=== PATIENT | male | born 1985 | race Two or more races ===

== ENCOUNTER 2019-11-09 18:58 | Emergency (ER) | payer OTHER ==
[~2019-11-09] VITALS: Ht 167.6 cm; Wt 56.2 kg
[2019-11-09 20:01] VITALS: BP 112/56
--- NOTE | 2019-11-09 21:17 | PHYS DOC ---
Past Medical History Past Medical History: Depression (SEPIDEH JOYCE APRN) Past Surgical History: No Surgical History (SEPIDEH JOYCE APRN) Alcohol Use: None Drug Use: None (SEPIDEH JOYCE APRN) Adult General Chief Complaint Chief Complaint: SORE THROAT HPI HPI Patient is a 34 year old male who presents with sore throat that started 3:00 PM today. Patient denies runny nose, congestion, fever. He rates his pain as 6 out of 10 in severity sharp. (SEPIDEH JOYCE APRN) Review of Systems Review of Systems Constitutional: Denies fever or chills [] Eyes: Denies change in visual acuity, redness, or eye pain [] HENT: Reports sore throat. Denies runny nose or congestion. Respiratory: Denies cough or shortness of breath [] Cardiovascular: No additional information not addressed in HPI [] GI: Denies abdominal pain, nausea, vomiting, bloody stools or diarrhea [] : Denies dysuria or hematuria [] Musculoskeletal: Denies back pain or joint pain [] Integument: Denies rash or skin lesions [] Neurologic: Denies headache, focal weakness or sensory changes [] Endocrine: Denies polyuria or polydipsia [] Complete systems were reviewed and found to be within normal limits, except as documented in this note. (SEPIDEH JOYCE APRN) Allergies Allergies Allergies Coded Allergies Type Severity Reaction Last Updated Verified No Known Drug Allergies 11/09/19 No (SEPIDEH BAKER DO) Physical Exam Physical Exam Constitutional: Well developed, well nourished, no acute distress, non-toxic appearance. [] HENT: Normocephalic, atraumatic, bilateral external ears normal, oropharynx moist, no oral exudates, nose turbinates inflammed. Eyes: PERRLA, EOMI, conjunctiva normal, no discharge. [] Neck: Normal range of motion, no tenderness, supple, no stridor. [] Cardiovascular:Heart rate regular rhythm, no murmur [] Lungs & Thorax: Bilateral breath sounds clear to auscultation [] Skin: Warm, dry, no erythema, no rash. [] Neurologic: Alert and oriented X 3, normal motor function, normal sensory function, no focal deficits noted. [] Psychologic: Affect normal, judgement normal, mood normal. [] (SEPIDEH JOYCE APRN) Current Patient Data Vital Signs Vital Signs Date Time Temp Pulse Resp B/P (MAP) Pulse Ox O2 Delivery O2 Flow Rate FiO2 11/09/19 20:01 97.8 73 15 112/56 (74) 100 Room Air 97.8 (SEPIDEH BAKER DO) EKG EKG [] (SEPIDEH JOYCE APRN) Radiology/Procedures Radiology/Procedures [] (SEPIDEH JOYCE APRN) Course & Med Decision Making Course & Med Decision Making Pertinent Labs and Imaging studies reviewed. (See chart for details) Appears to have viral URI. Discussed taking Zyrtec. Strep is negative. (SEPIDEH JOYCE APRN) Dragon Disclaimer Dragon Disclaimer This electronic medical record was generated, in whole or in part, using a voice recognition dictation system. (SEPIDEH JOYCE APRN) Departure Departure Impression: Primary Impression: URI (upper respiratory infection) Disposition: HOME, SELF-CARE Condition: STABLE Referrals: UNKNOWN PCP NAME (PCP) Patient Instructions: Upper Respiratory Infection, Adult Additional Instructions: Thank you for visiting [facility]. We appreciate you trusting us with your care. If any additional problems come up don't hesitate to return to visit us. Please follow up with your primary care provider so they can plan additional care if needed and know about the problem that you had. If symptoms worsen come back to the Emergency Department. Any concerning symptoms that start such as chest pain, shortness of air, weakness or numbness on one side of the body, running high fevers or any other concerning symptoms return to the ER. Please start taking Zyrtec [id number] per label instructions. Attending Signature Attending Signature I have reviewed the PA/TOPPIECE CUTTER's note and plan of care. I was available for consultation as needed during the patient's visit in the emergency department. I agree with the clinical impression, plan, and disposition. (SEPIDEH BAKER DO) Problem Qualifiers Primary Impression: URI (upper respiratory infection) URI type: unspecified viral URI Qualified Codes: J06.9 - Acute upper respi ratory infection, unspecified SEPIDEH JOYCE APRN Nov 09, 2019 21:17 SEPIDEH BAKER DO Nov 10, 2019 01:13
== END 2019-11-09 21:22 | disposition home or self-care (01) ==
LOC: ER 18:58
DX: J06.9 Acute upper respiratory infection, unspecified (principal)
CPT/HCPCS: 87070; 87880; 99283

== ENCOUNTER 2020-02-06 15:46 | Emergency (ER) | payer OTHER ==
[~2020-02-06] VITALS: Ht 167.6 cm; Wt 55.0 kg
[2020-02-06 16:00] VITALS: BP 116/86
--- NOTE | 2020-02-06 16:13 | PHYS DOC ---
Past Medical History Past Medical History: Depression Past Surgical History: No Surgical History Smoking Status: Never Smoker Alcohol Use: None Drug Use: None Adult General Chief Complaint Chief Complaint: COUGH HPI HPI Patient is a 34 year old male who presents with cough this been ongoing for several weeks. The patient denies shortness of breath, fever, runny nose, sore throat. The patient states that this happens frequently for him he states he had an upper respiratory infection several months ago and took Zyrtec and it went away however Zyrtec is not helping at this time. Denies any travel or sick contacts. Complete ROS were reviewed and found to be within normal limits, except as documented in the HPI Allergies Allergies Allergies Coded Allergies Type Severity Reaction Last Updated Verified No Known Drug Allergies 11/09/19 No Physical Exam Physical Exam Constitutional: Well developed, well nourished, no acute distress, non-toxic ap pearance. [] HENT: Normocephalic, atraumatic, bilateral external ears normal, oropharynx moist, no oral exudates, nose normal. [] Neurologic: Alert and oriented X 3, normal motor function, normal sensory function, no focal deficits noted. [] Psychologic: Affect normal, judgement normal, mood normal. [] EKG EKG [] Radiology/Procedures Radiology/Procedures [] Course & Med Decision Making Course & Med Decision Making Pertinent Labs and Imaging studies reviewed. (See chart for details) Discussed with the patient that this could be from GERD discussed that he should probably follow-up with his primary care doctor for further evaluation and to set up we can have it scoped. Discussed with the patient I am unable to rule out coronavirus due to the fact that I am unable to test and would recommend self pointing at home for the next 14 days. Dragon Disclaimer Dragon Disclaimer This electronic medical record was generated, in whole or in part, using a voice recognition dictation system. Departure Departure Impression: Primary Impression: Cough Disposition: HOME, SELF-CARE Condition: STABLE Referrals: UNKNOWN PCP NAME (PCP) Patient Instructions: Cough, Adult Additional Instructions: Thank you for visiting [facility]. We appreciate you trusting us with your care. If any additional problems come up don't hesitate to return to visit us. Please follow up with your primary care provider so they can plan additional care if needed and know about the problem that you had. If symptoms worsen come back to the Emergency Department. Any concerning symptoms that start such as chest pain, shortness of air, weakness or numbness on one side of the body, running high fevers or any other concerning symptoms return to the ER. You have a viral syndrome which may include symptoms like muscle aches, fevers, chills, runny nose, cough, sneezing, sore throat, vomiting, or diarrhea. One of the potential viruses that you may have is SARS-CoV-2, the virus that causes COVID-19, also known as the Coronavirus. You are just as likely to have a different viral infection such as the common cold, flu, etc. Most patients with the Coronavirus have mild symptoms and recover on their own. Resting, staying hydrated, and sleep from known cases can be helpful. As of todays visit, you are well enough to go home and treat your symptoms with oral fluids and over the counter medications. Coronavirus testing is not performed on most people with mild symptoms who are being discharged from the emergency department. If Coronavirus testing was performed the results will not be available for possibly up to 2-3 days. If your result is positive you will be contacted. Please follow the following precautions at home: 1) Stay home except to get medical care. 2) As advised by the CDC we recommend you stay in your home and minimize contact with other people. We do not want you to spread the infection. 3) Those who are older or have significant medical issues may have more severe symptoms from this infection. We recommend self-isolation,FOR AT LEAST 7 DAYS after your 1st day of symptoms. AFTER you feel better please wait AT LEAST ANOTHER WEEK before returning to regular activities and being around other people! 4) IF you become sicker and have difficulty breathing, chest pain, unable to eat/drink, severe vomiting, diarrhea, or weakness you may need to return to the Emergency Department. 5) You should restrict activities outside your home, except for getting medical care. DO NOT go to work, school, or public areas. Avoid using public transportation, ride sharing, or taxis. 6) Separate yourself from other people in your home. You should use a separate bathroom if possible. 7) Avoid sharing personal household items such as dishes, cups, eating utensils, towels, etc. 8) Clean all high touch surfaces every day (door knobs, counter tops, etc). Use a household cleaning spray or wipe per label instructions. 9) Clean your hands often. Wash your hands with soap and water for at least 20 seconds. 10) Cover your mouth and nose with a tissue when you cough or sneeze. 11) Throw used tissues in a trash can and immediately wash your hands. For additional resources please visit the CDC website or the [facility] ([phone]). SEPIDEH JOYCE APRN Feb 06, 2020 16:13
== END 2020-02-06 16:34 | disposition home or self-care (01) ==
LOC: ER 15:46
DX: R05 Cough (principal)
CPT/HCPCS: 99281

== ENCOUNTER 2020-08-31 08:10 | Emergency (ER) | payer OTHER ==
[~2020-08-31] VITALS: Ht 167.6 cm; Wt 57.6 kg
[2020-08-31 08:20] VITALS: BP 110/50
[2020-08-31] MEDS ORDERED: DEXAMETHASONE SOD PHOS 20 MG/5 ML VIAL. PO ONE (08:45)
[2020-08-31] MEDS ORDERED: ACETAMINOPHEN 500 MG TABLET PO ONE (08:45)
[2020-08-31] MEDS ORDERED: FLUT9.9S NS (09:41)
[2020-08-31] MEDS ORDERED: GUAI600T47 PO (09:41)
--- NOTE | 2020-08-31 09:41 | PHYS DOC ---
Past Medical History Past Medical History: Depression Past Surgical History: No Surgical History Smoking Status: Never Smoker Alcohol Use: None Drug Use: None General Adult EDM: Chief Complaint: SORE THROAT HPI: HPI: History obtained for the patient. Patient is a 35-year-old male with a history of constipation presents with chief complaint of sore throat nasal congestion. He states that his sore throat began last night around 9 PM. Denies any changes to his voice. Denies any pain with opening his mouth. Does note mild pain with swallowing. Has tried some form of cough drops with minimal relief. Denies cough or fever. Denies vomiting. Denies headache. Does note some ear fullne ss. Denies any recent antibiotics. Denies any neck pain or limitations in his head and neck range of motion. Denies any known exposure to coronavirus. Denies any loss of taste or smell. No other complaints. Review of Systems: Review of Systems: Constitutional: Denies fever or chills. [] Eyes: Denies change in visual acuity. [] HENT: Positive for sore throat Respiratory: Denies cough or shortness of breath. [] Cardiovascular: Denies chest pain or edema. [] GI: Denies abdominal pain, nausea, vomiting, bloody stools or diarrhea. [] : Denies dysuria. [] Musculoskeletal: Denies back pain or joint pain. [] Integument: Denies rash. [] Neurologic: Denies headache, focal weakness or sensory changes. [] Endocrine: Denies polyuria or polydipsia. [] Lymphatic: Denies swollen glands. [] Psychiatric: Denies depression or anxiety. [] Heart Score: Risk Factors: Risk Factors: DM, Current or recent (<one month) smoker, HTN, HLP, family history of CAD, obesity. Risk Scores: Score 0 - 3: 2.5% MACE over next 6 weeks - Discharge Home Score 4 - 6: 20.3% MACE over next 6 weeks - Admit for Clinical Observation Score 7 - 10: 72.7% MACE over next 6 weeks - Early Invasive Strategies Current Medications: Current Medications Medications (Trade) Dose Ordered Sig/Lisa Start Time Stop Time Status Last Admin Dose Admin Acetaminophen (Tylenol) 1,000 mg 1X ONCE 08/31/20 08:45 08/31/20 08:46 DC 08/31/20 09:12 1,000 MG Dexamethasone Sodium Phosphate (Decadron) 10 mg 1X ONCE 08/31/20 08:45 08/31/20 08:46 DC 08/31/20 09:11 10 MG Allergies: Allergies: Allergies Coded Allergies Type Severity Reaction Last Updated Verified No Known Drug Allergies 11/09/19 No Physical Exam: PE: Constitutional: Well developed, well nourished, no acute distress, non-toxic appearance. [] HENT: ENT: Tolerates saliva. No trismus. Mild erythema of the oropharynx {with without:35799} exudate. No airway obstruction. Normal phonation. Uvula midline. NECK: No midline cervical tenderness. Anterior cervical adenopathy {Is/is not:9024} present. No tenderness of carotid sheath bilaterally. Neck supple with full ROM and without signs of meningismus. Eyes: PERRLA, EOMI, conjunctiva normal, no discharge. [] Cardiovascular:Heart rate regular rhythm, no murmur [] Lungs & Thorax: Bilateral breath sounds clear to auscultation [] Abdomen: soft, no tenderness, no masses, no pulsatile masses. [] Skin: Warm, dry, no erythema, no rash. [] Back: No tenderness, no CVA tenderness. [] Extremities: No tenderness, no cyanosis, no clubbing, ROM intact, no edema. [] Neurologic: Alert and oriented X 3, normal motor function, normal sensory function, no focal deficits noted. [] Psychologic: Affect normal, judgement normal, mood normal. [] Current Patient Data: Vital Signs: Vital Signs Date Time Temp Pulse Resp B/P (MAP) Pulse Ox O2 Delivery O2 Flow Rate FiO2 08/31/20 08:20 98.4 75 14 110/50 (70) 95 Room Air 98.4 EKG: EKG: [] Radiology/Procedures: Radiology/Procedures: [] Course & Med Decision Making: Course & Med Decision Making Pertinent Labs and Imaging studies reviewed. (See chart for details) [] Patient is a well-appearing 35-year-old male who presents with complaint of sore throat associate with nasal drainage. Exam noted above and grossly unremarkable. Low suspicion for deep space infection. Patient does not appear clinically toxic or have signs or symptoms concerning for deep space infection. Rapid strep test was negative. This could be related to his return precautions discussed and understood. Instructed follow-up with his primary care physician in the next 2 to 3 days. Stable for discharge. Ulises Disclaimer: Ulises Disclaimer: This electronic medical record was generated, in whole or in part, using a voice recognition dictation system. Departure Departure Impression: Primary Impression: Sore throat Disposition: 01 DC HOME SELF CARE/HOMELESS Condition: STABLE Referrals: UNKNOWN PCP NAME (PCP) Patient Instructions: Sore Throat Additional Instructions: [facility] [address] [place] [address] [facility] [address] [place] [address] [facility] [address] [facility] [place] [address] [facility] [address] [place] [address] [facility] [address] [place] [address] [address] [address] [place] [address] [address] [place] [address] [facility] [address] [place] [address] [facility] [address] [place] [address] [facility] [address] [place] [address] Scripts Guaifenesin (MUCINEX) 600 Mg Tablet.er 1 TAB PO BID for cough for 5 Days, #10 TAB 0 Refills Prov: KAROL BAKER DO 08/31/20 Fluticasone Propionate (Flonase Allergy Relief) 9.9 Ml [place].susp 2 SPRAYS NS DAILY for 14 Days, #1 BOTTLE Prov: KAROL BAKER DO 08/31/20 KAROL BAKER DO Aug 31, 2020 09:41
== END 2020-08-31 10:04 | disposition home or self-care (01) ==
LOC: ER 08:10
DX: J02.9 Acute pharyngitis, unspecified (principal); R09.81 Nasal congestion; R05 Cough; F32.9 Major depressive disorder, single episode, unspecified
CPT/HCPCS: 87070; 87880; 99283; J1100